=== PATIENT | female | born 1965 | race Caucasian/White ===

== ENCOUNTER 2016-06-14 15:44 | Outpatient (CLI) | payer MEDICAID | END 2016-06-14 15:45 | disposition home or self-care (01) | DX: Z12.31 Encounter for screening mammogram for malignant neoplasm of breast (principal); R92.8 Other abnormal and inconclusive findings on diagnostic imaging of breast ==

== ENCOUNTER 2016-09-01 12:19 | Outpatient (CLI) | payer MEDICAID | END 2016-09-01 12:20 | disposition home or self-care (01) | DX: N60.02 Solitary cyst of left breast (principal) ==

== ENCOUNTER 2017-03-21 15:57 | Outpatient (CLI) | payer MEDICAID ==
--- NOTE | 2017-03-21 16:50 | XRAY Preliminary Report ---
Exam: XR FOOT 3 VIEW RT IMPRESSION: Normal foot radiography. [facility] SITE ID: [id number]
--- NOTE | 2017-03-21 16:53 | XRAY Report ---
EXAM: RIGHT FOOT RADIOGRAPHY EXAM DATE: 03/21/2017 04:40 PM. CLINICAL HISTORY: PAIN. COMPARISON: None. TECHNIQUE: 3 views. FINDINGS: Bones: Normal. No fractures or bone lesions. Joints: Normal. No subluxations. Soft Tissues: Unremarkable. IMPRESSION: Normal foot radiography. [facility] Referring Provider Line: [phone] SITE ID: [id number]
== END 2017-03-21 15:58 | disposition home or self-care (01) ==
LOC: DI 15:57
DX: M79.671 Pain in right foot (principal)

== ENCOUNTER 2017-04-18 15:38 | Emergency (ER) | payer MEDICAID ==
[2017-04-18 15:45] VITALS: BP 135/88
--- NOTE | 2017-04-18 16:01 | ED Physician Documentation ---
PD HPI HEENT - Stated complaint Stated Complaint: DIZZY - Chief complaint Chief Complaint: Heent - History obtained from History obtained from: Patient - History of Present Illness Timing - onset: Other (She has had sinus congestion sore throat for 2 months now associated with vertigo today when turning her head that was exacerbated by cervical spine physical therapy. There is some subjective fever and chills with it but nothing measured. No sick contacts or recent travel.) Review of Systems Constitutional: reports: Fever, Chills, Fatigue Ears: reports: Ear pain Nose: reports: Congestion, Sinus pressure / pain Throat: reports: Sore throat Respiratory: reports: Cough (Occasional, usually dry). 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 : None HEENT: None Psych: Bipolar disorder Musculoskeletal: None Derm: None - Past Surgical History Past Surgical History: No - Present Medications Home Medications: Ambulatory Orders Medication Instructions Recorded Confirmed Venlafaxine [Effexor] 150 mg PO DAILY 08/28/13 04/18/17 lamoTRIgine [LaMICtal] 200 mg PO BID 08/28/13 04/18/17 Amoxicillin 500 mg PO TID #30 capsule 04/18/17 Gabapentin 300 mg PO TID 04/18/17 04/18/17 Meclizine HCl 1 tab PO Q6H PRN #15 tab.chew 04/18/17 - Allergies Allergies/Adverse Reactions: Allergies Allergy/AdvReac Type Severity Reaction Status Date / Time Sulfa (Sulfonamide Allergy Hives Verified 04/18/17 15:45 Antibiotics) - Social History Does the pt smoke?: Yes Smoking Status: Current every day smoker Does the pt drink ETOH?: No Does the pt have substance abuse?: No - Immunizations Immunizations are current?: Yes PD ED PE NORMAL - Vitals Vital signs reviewed: Yes - General General: Alert and oriented X 3, No acute distress, Well developed/nourished - HEENT HEENT: Ears normal, Moist mucous membranes, Pharynx benign, Other (Sinus tenderness, especially frontal.) - Neck Neck: Supple, no meningeal sign, No bony TTP - Cardiac Cardiac: RRR, No murmur - Respiratory Respiratory: No respiratory distress, Clear bilaterally - Abdomen Abdomen: Non tender - Neuro Neuro: Alert and oriented X 3 Eye Opening: Spontaneous Motor: Obeys Commands Verbal: Oriented GCS Score: 15 - Psych Psych: Normal mood, Normal affect Results - Vitals Vitals: Vital Signs - 24 hr 04/18/17 15:41 Temperature 35.5 C L Heart Rate 90 Respiratory 18 Rate Blood Pressure 135/88 H O2 Saturation 100 Oxygen O2 Source Room air PD MEDICAL DECISION MAKING - ED course ED course: She presents with signs and symptoms of sinus infection with associated mild vertigo which seems peripheral, stroke scale negative. Departure - Departure Disposition: Home, Self Care Clinical Impression: Sinusitis Qualifiers: Sinusitis location: frontal Chronicity: acute Recurrence: recurrent Qualified Code(s): J01.11 - Acute recurrent frontal sinusitis Condition: Good Record reviewed to determine appropriate education?: Yes Instructions: ED Sinusitis Abx Tx Prescriptions: Amoxicillin 500 mg PO TID #30 capsule Meclizine HCl 1 tab PO Q6H PRN #15 tab.chew PRN Reason: Vertigo Comments: Call your doctor to arrange a follow-up appointment, make the next available appointment. In the interim, return anytime if worse or if new symptoms develop. Your blood pressure was elevated today on check into the emergency department. This does not mean that you have hypertension, it is a common phenomenon to come to the emergency department and have elevated blood pressure. I recommend that you see your primary care physician within the week to have it rechecked when you are feeling better.
== END 2017-04-18 16:06 | disposition home or self-care (01) ==
LOC: ED 15:38
DX: J01.11 Acute recurrent frontal sinusitis (principal); R03.0 Elevated blood-pressure reading, without diagnosis of hypertension; F17.200 Nicotine dependence, unspecified, uncomplicated
CPT/HCPCS: 99283

== ENCOUNTER 2018-10-07 06:31 | Emergency (ER) | payer MEDICAID ==
[2018-10-07 06:38] VITALS: BP 138/95
[2018-10-07] MEDS ORDERED: PROPARACAINE 0.5% OPHTH DROPS 15 ML RIGHTEYE STA (07:09)
--- NOTE | 2018-10-07 07:12 | ED Physician Documentation ---
PD HPI OPHTHO - Stated complaint Stated Complaint: EYE PX - Chief complaint Chief Complaint: Heent - History obtained from History obtained from: Patient - History of Present Illness Timing - onset: Last night Timing - duration: Hours Timing - details: Abrupt onset, Still present Location: Left Quality / character: Sharp, Other (fb) Associated symptoms: FB sensation Contributing factors: Other (dog scratched eye) Similar symptoms before: Has not had sx before Recently seen: Not recently seen - Additional information Additional information: 52-year-old female was playing with a dog yesterday when the dog scratched her in the left thigh she has had a foreign body sensation since that time she is not able to see anything in the eye but continues to have the foreign body sensation. Review of Systems Constitutional: denies: Fever Eyes: reports: Irritation. 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 : None HEENT: None Psych: Bipolar disorder Musculoskeletal: None Derm: None - Past Surgical History Past Surgical History: No - Present Medications Home Medications: Ambulatory Orders Medication Instructions Recorded Confirmed Venlafaxine [Effexor] 150 mg PO DAILY 08/28/13 04/18/17 lamoTRIgine [LaMICtal] 200 mg PO BID 08/28/13 04/18/17 Amoxicillin 500 mg PO TID #30 capsule 04/18/17 Gabapentin 300 mg PO TID 04/18/17 04/18/17 Meclizine HCl 1 tab PO Q6H PRN #15 tab.chew 04/18/17 Neomycin/Poly/Dex Ophth Drops 1 drops LEFTEYE QID #1 bottle 10/07/18 [Maxitrol Ophth Drops] - Allergies Allergies/Adverse Reactions: Allergies Allergy/AdvReac Type Severity Reaction Status Date / Time midazolam [From Versed] Allergy Unknown Verified 10/07/18 06:38 Sulfa (Sulfonamide Allergy Hives Verified 10/07/18 06:38 Antibiotics) - Social History Does the pt smoke?: Yes Smoking Status: Current every day smoker Does the pt drink ETOH?: No Does the pt have substance abuse?: No - Immunizations Immunizations are current?: Yes - POLST Patient has POLST: No PD ED PE NORMAL - Vitals Vital signs reviewed: Yes (hypertensive ) - General General: Alert and oriented X 3, No acute distress, Well developed/nourished - HEENT HEENT: Atraumatic, PERRL, EOMI, Other (There is no obvious FB under the lid or on the conjunctiva. There is superficial fluorocein uptake superiorly. There is no hyphema, there is no distortion of the pupil or irris. ) - Neck Neck: Supple, no meningeal sign - Respiratory Respiratory: No respiratory distress - Derm Derm: Normal color, Warm and dry, No rash - Extremities Extremities: No deformity, No edema - Neuro Neuro: Alert and oriented X 3, [employer] 2-12 intact, No motor deficit, No sensory deficit, Normal speech Eye Opening: Spontaneous Motor: Obeys Commands Verbal: Oriented GCS Score: 15 - Psych Psych: Normal mood, Normal affect Results - Vitals Vitals: Vital Signs - 24 hr /18/19 06:35 Temperature 36.3 C L Heart Rate 83 Respiratory 16 Rate Blood Pressure 138/95 H O2 Saturation 100 Oxygen O2 Source Room air PD MEDICAL DECISION MAKING - ED course Complexity details: considered differential, d/w patient ED course: 52-year-old female with a superficial abrasion to the left cornea. Departure - Departure Disposition: 01 Home, Self Care Clinical Impression: Corneal abrasion, left Qualifiers: Encounter type: initial encounter Qualified Code(s): S05.02XA - Injury of conjunctiva and corneal abrasion without foreign body, left eye, initial encounter Condition: Stable Instructions: ED Eye Injury Corneal Abrasion Follow-Up: [facility] [Provider Group] Porter Malcolm MD [Provider Admit Priv/Credential] - Prescriptions: Neomycin/Poly/Dex Ophth Drops [Maxitrol Ophth Drops] 1 drops LEFTEYE QID #1 bottle
== END 2018-10-07 07:44 | disposition home or self-care (01) ==
LOC: ED 06:31
DX: S05.02XA Injury of conjunctiva and corneal abrasion without foreign body, left eye, initial encounter (principal); W54.8XXA Other contact with dog, initial encounter; Y93.89 Activity, other specified; F17.200 Nicotine dependence, unspecified, uncomplicated
CPT/HCPCS: 99283; J3490

== ENCOUNTER 2019-01-23 05:02 | Emergency (ER) | payer MEDICAID ==
--- NOTE | 2019-01-23 05:09 | ED Physician Documentation ---
PD HPI NECK PAIN - Stated complaint Stated Complaint: NK/BK/SHOULDER PX - History obtained from History obtained from: Patient - History of Present Illness Timing - onset: Chronic Timing - duration: Years Timing - details: Gradual onset, Waxing and waning Pain level now: 5 Location: Lower, Right, Left Quality: Pain, Similar to prior episodes, Other (burning) Associated symptoms: No: Fever, Weakness, Numbness, Incontinent of urine, Unable to urinate Improves with: Rest Worsened by: Movement Similar symptoms before: Diagnosis (DJD, cervical disc "bulging" (per patient), "bone spur") - Additional information Additional information: c/o chronic mid/low posterior neck pain radiating to bilateral shoulders, aching and burning pain. Steadily worsening, exacerbated with movement. She had some medication injected into the area approximately 1 year ago and she says this worked well for nearly a full year but pain has been gradually returning and next step is to have MRI performed; she is awaiting approval for this so she can schedule it. She says her doctor will then use the MRI results to decide whether to perform another injection or perform surgery. She presents at this time looking for symptomatic relief Review of Systems Constitutional: denies: Fever Skin: denies: Rash Musculoskeletal: reports: Neck pain. 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 HEENT: None Psych: Bipolar disorder Musculoskeletal: None Derm: None - Past Surgical History Past Surgical History: No - Present Medications Home Medications: Ambulatory Orders Medication Instructions Recorded Confirmed Venlafaxine [Effexor] 300 mg PO DAILY 08/28/13 04/18/17 lamoTRIgine [LaMICtal] 200 mg PO BID 08/28/13 01/23/19 Gabapentin 900 mg PO BID 04/18/17 04/18/17 Cyclobenzaprine [Flexeril] 10 mg PO TID PRN #20 tablet 01/23/19 Estradiol 1 mg PO DAILY 01/23/19 01/23/19 Ibuprofen [Motrin] 800 mg PO BID 01/23/19 01/23/19 Lidocaine Patch 5% [Lidoderm Patch] 1 each TOP DAILY PRN #20 patch 01/23/19 - Allergies Allergies/Adverse Reactions: Allergies Allergy/AdvReac Type Severity Reaction Status Date / Time midazolam [From Versed] Allergy Unknown Verified 10/07/18 06:38 Sulfa (Sulfonamide Allergy Hives Verified 10/07/18 06:38 Antibiotics) - Social History Does the pt smoke?: Yes Smoking Status: Current every day smoker Does the pt drink ETOH?: No Does the pt have substance abuse?: No - Immunizations Immunizations are current?: Yes - POLST Patient has POLST: No PD ED PE NORMAL - Vitals Vital signs reviewed: Yes - General General: Alert and oriented X 3, No acute distress, Well developed/nourished - Neck Neck: Supple, no meningeal sign, No bony TTP - Respiratory Respiratory: No respiratory distress, Clear bilaterally - Derm Derm: No rash - Neuro Neuro: No motor deficit (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 ), No sensory deficit (LTS intact BUE) Results - Vitals Vitals: Vital Signs - 24 hr 01/23/19 01/23/19 05:06 06:05 Temperature 36.6 C Heart Rate 84 77 Respiratory 17 16 Rate Blood Pressure 118/86 H 118/63 O2 Saturation 99 96 Oxygen O2 Source Room air PD MEDICAL DECISION MAKING - ED course Complexity details: reviewed old records, considered differential, d/w patient ED course: Emergent testing not indicated at this time (no elements of HPI or exam to suggest infection, spinal cord compression, or other neurovascular emergent process). Patient says she is recovering alcoholic and wants very much to avoid opiates/narcotic medications. We discussed benzodiazepines for muscle relaxant property but we both agree this would also be inappropriate given her h/o alcoholism. She has had flexeril in the past and this was given (take-home) and as rx, as well as lidocaine patches and one-time dose of decadron PO. Departure - Departure Disposition: 01 Home, Self Care Clinical Impression: Cervical radiculopathy Condition: Good Instructions: ED Cervical Radiculopathy Follow-Up: Sarwat Aldrich MD [Primary Care Provider] - Prescriptions: Cyclobenzaprine [Flexeril] 10 mg PO TID PRN #20 tablet PRN Reason: Spasms Lidocaine Patch 5% [Lidoderm Patch] 1 each TOP DAILY PRN #20 patch PRN Reason: Pain Discharge Date/Time: 01/23/19 06:11
[2019-01-23] MEDS ORDERED: LIDOCAINE PATCH 5% TOP STA (05:55)
[2019-01-23] MEDS ORDERED: CHERRY SYRUP 10 ML UDC PO ONE (05:56)
[2019-01-23] MEDS ORDERED: CYCLOBENZAPRINE 10 MG Prepack 2 PO PRN (05:56)
[2019-01-23] MEDS ORDERED: DEXAMETHASONE 10 MG/ML VIAL PO STA (05:56)
[2019-01-23 06:06] VITALS: BP 118/63
== END 2019-01-23 06:11 | disposition home or self-care (01) ==
LOC: ED 05:02
DX: M54.12 Radiculopathy, cervical region (principal); F17.200 Nicotine dependence, unspecified, uncomplicated; F10.21 Alcohol dependence, in remission
CPT/HCPCS: 99282; 99284; A9270

== ENCOUNTER 2019-01-31 16:31 | Outpatient (CLI) | payer MEDICAID ==
--- NOTE | 2019-02-05 16:03 | Mammography Report ---
Reason: SCREENING FOR BREAST CANCER Procedure Date: 01/31/2019 Accession Number: [id number] / [id number] Procedure: [facility] - Screening Mammo w/Mary Kate CPT Code: FULL RESULT: EXAM: Screening Mammo w/Mary Kate DATE: 01/31/2019 4:56 PM CLINICAL HISTORY: Routine screening TECHNIQUE: (B) - Bilateral CC and MLO views were obtained. COMPARISON: 09/01/2016 and 06/14/2016 PARENCHYMAL PATTERN: (D) - The breasts demonstrate heterogeneously dense fibroglandular parenchyma bilaterally. FINDINGS: On the left cyst at the 11:30 position 3 cm from the nipple appears slightly smaller and less evident than on the preceding examination. No suspicious microcalcifications, architectural distortion, or skin thickening on the left. On the right there is a 1 cm nodular density in the 10:00 position 2 cm from the nipple best seen on MLO mary kate 32 and CC mary kate 27. This may have been present on the prior mammogram but obscured by the dense breast tissue. A second nodular density is seen at approximately the 8:00 position 1.5 cm from the nipple MLO mary kate 29, CC mary kate 25. Also possibly obscured on the prior study. There are no suspicious calcifications or areas of distortion. IMPRESSION: 1. Needs additional evaluation right breast by ultrasound. 2. Benign finding left breast. RECOMMENDATION: (ADDUS) - Targeted ultrasound recommended. Right breast BI-RADS CATEGORY: (0) - Incomplete Examination - need additional evaluation. STANDARD QUALIFYING STATEMENTS: 1. This examination was not reviewed with the aid of Computer-Aided Detection (CAD). 2. A negative or benign imaging report should not preclude biopsy if clinically suspicious findings are present. 3. Dense breasts may obscure an underlying neoplasm. 4. This examination was reviewed with the aid of 3D breast imaging (tomosynthesis).
== END 2019-01-31 16:32 | disposition home or self-care (01) ==
LOC: DI 16:31
PROVIDERS: ATTEND Internal Medicine
DX: Z12.31 Encounter for screening mammogram for malignant neoplasm of breast (principal); R92.8 Other abnormal and inconclusive findings on diagnostic imaging of breast
CPT/HCPCS: 77063; 77067

== ENCOUNTER 2019-05-15 12:34 | Outpatient (CLI) | payer MEDICAID | END 2019-05-15 23:59 | disposition home or self-care (01) | LOC: LAB.R 12:34 | PROVIDERS: ATTEND Registered Nurse | DX: J04.0 Acute laryngitis (principal); R05 Cough; J01.90 Acute sinusitis, unspecified; J20.9 Acute bronchitis, unspecified | CPT/HCPCS: 87070; 87077 ==

== ENCOUNTER 2019-06-04 11:49 | Outpatient (CLI) | payer MEDICAID ==
[2019-06-04 12:30] LABS: BASOPHILS % (AUTO) 0.6 %; EOSINOPHILS # (AUTO) 0.1 10^3/uL (0.0-0.7); EOSINOPHILS % (AUTO) 1.6 %; HGB - HEMOGLOBIN 12.4 g/dL (12.0-16.0); LYMPHOCYTES # (AUTO) 1.4 10^3/uL (1.5-3.5); LYMPHOCYTES % (AUTO) 20.5 %; MEAN CORPUSCULAR HGB CONC 32.5 g/dL (32.0-36.0); MEAN CORPUSCULAR VOLUME 95.3 fL (81.0-99.0); MEAN PLATELET VOLUME 9.8 fL (7.9-10.8); MONOCYTES # (AUTO) 0.7 10^3/uL (0.0-1.0); MONOCYTES % (AUTO) 9.4 %; NEUTROPHILS # (AUTO) 4.7 10^3/uL (1.5-6.6); NEUTROPHILS % (AUTO) 67.2 %; PLT - PLATELET COUNT 345 10^3/uL (130-450); RED CELL DISTRIBUTION WIDTH 13.3 % (12.0-15.0)
[2019-06-04 17:18] LABS: ALBUMIN 4.3 g/dL (3.2-5.5); ALBUMIN/GLOBULIN RATIO 1.4 (1.0-2.2); ALKALINE PHOSPHATASE 49 IU/L (42-121); ALT ALANINE AMINOTRANSFERASE 22 IU/L (10-60); AST ASPARTATE AMINOTRANSFERASE 24 IU/L (10-42); BILIRUBIN,TOTAL 0.7 mg/dL (0.2-1.0); BUN - BLOOD UREA NITROGEN 13 mg/dL (6-20); CALCIUM 9.6 mg/dL (8.5-10.3); CARBON DIOXIDE - CO2 25 mmol/L (21-32); CHLORIDE 102 mmol/L (101-111); CHOL/HDL RATIO 3.2 (<4.4); CHOLESTEROL 246 mg/dL; CREATININE 0.8 mg/dL (0.4-1.0); GFR - MDRD 74 (>89); GLUCOSE 100 mg/dL (70-100); HDL CHOLESTEROL 76 mg/dL; LDL CHOLESTEROL,CALCULATED 140 mg/dL; LDL/HDL RATIO 1.8 (<4.4); SODIUM 140 mmol/L (135-145); TOTAL PROTEIN 7.4 g/dL (6.7-8.2); VLDL CHOLESTEROL 30 mg/dL
== END 2019-06-04 11:50 | disposition home or self-care (01) ==
LOC: LAB 11:49
PROVIDERS: ATTEND Nurse Practitioner
DX: Z00.00 Encounter for general adult medical examination without abnormal findings (principal); Z79.899 Other long term (current) drug therapy; Z13.29 Encounter for screening for other suspected endocrine disorder; Z13.220 Encounter for screening for lipoid disorders
CPT/HCPCS: 36415; 80053; 80061; 83721; 84443; 85025

== ENCOUNTER 2019-06-04 12:10 | Outpatient (CLI) | payer MEDICAID ==
--- NOTE | 2019-06-05 01:50 | XRAY Report ---
Reason: COUGH, LARYNGITIS Procedure Date: 06/04/2019 Accession Number: [id number] / [id number] Procedure: XR - Chest 2 View X-Ray CPT Code: 63555 Final Report FULL RESULT: EXAM: CHEST RADIOGRAPHY EXAM DATE: 06/04/2019 12:21 PM. CLINICAL HISTORY: COUGH, LARYNGITIS. COMPARISON: None. TECHNIQUE: 2 views. FINDINGS: Lungs/Pleura: No focal opacities evident. No pleural effusion. No pneumothorax. Normal volumes. Mediastinum: Heart and mediastinal contours are unremarkable. Other: None. IMPRESSION: Negative 2-view chest radiography. [facility]
== END 2019-06-04 12:11 | disposition home or self-care (01) ==
LOC: DI 12:10
PROVIDERS: ATTEND Registered Nurse
DX: R05 Cough (principal); J04.0 Acute laryngitis; Z00.00 Encounter for general adult medical examination without abnormal findings; Z79.899 Other long term (current) drug therapy; Z13.29 Encounter for screening for other suspected endocrine disorder; Z13.220 Encounter for screening for lipoid disorders
CPT/HCPCS: 36415; 71046; 80053; 80061; 84443; 85025

== ENCOUNTER 2019-07-10 12:44 | Outpatient (CLI) | payer MEDICAID ==
--- NOTE | 2019-07-10 16:36 | Ultrasound Report ---
Reason: ABN MAMMO - 3 MO F/U Procedure Date: 07/10/2019 Accession Number: [id number] / [id number] Procedure: US - Breast Unilateral Limited CPT Code: Final Report FULL RESULT: EXAM: Breast Unilateral Limited DATE: 07/10/2019 1:32 PM CLINICAL HISTORY: ABN MAMMO - 3 MO F/U COMPARISON: 01/31/2019 mammogram and 02/09/2019 ultrasound. TECHNIQUE: Targeted ultrasound was performed of the right breast in the area of clinical concern at 8 o'clock and 2 cm distance from the nipple. Color Doppler was employed as appropriate. FINDINGS: Previously sonographically demonstrated group with 2 nodules at the 8:00 position in the retroareolar region demonstrates no interval sonographic change. The nodules remain relatively well demarcated hypoechoic with complex internal echoes and questionably increased through transmission. Findings remain probably benign with maximal dimensions of 0.6 x 0.4 x 0.6 cm for the more superficial nodule and 0.7 x 0.6 x 0.8 cm for the deeper of the 2 nodules at the 8:00 position. IMPRESSION: Probable benign findings RECOMMENDATION: Recommend diagnostic right breast ultrasound in 6 months. To be performed at the time of annual screening mammography. BIRADS CATEGORY 3 [facility]
== END 2019-07-10 12:45 | disposition home or self-care (01) ==
LOC: DI 12:44
PROVIDERS: ATTEND Internal Medicine
DX: N63.41 Unspecified lump in right breast, subareolar (principal)
CPT/HCPCS: 76642

== ENCOUNTER 2019-09-10 15:25 | Outpatient (CLI) | payer MEDICAID | END 2019-09-10 23:59 | disposition home or self-care (01) | LOC: LAB.R 15:25 | PROVIDERS: ATTEND Nurse Practitioner | DX: N39.41 Urge incontinence (principal); R30.0 Dysuria | CPT/HCPCS: 87086 ==

== ENCOUNTER 2019-10-02 11:49 | Outpatient (CLI) | payer MEDICAID ==
--- NOTE | 2019-10-02 12:39 | CT Report ---
Reason: SINUSITUS, HEADACHE Procedure Date: 10/02/2019 Accession Number: [id number] / [id number] Procedure: CT - Sinuses CPT Code: Final Report FULL RESULT: EXAM: CT SINUS EXAM DATE: 10/02/2019 12:19 PM. HISTORY: SINUSITIS, HEADACHE. COMPARISONS: None. TECHNIQUE: Routine multi-axial CT imaging performed through the sinuses. Iodinated IV contrast: None. Reconstructions: Multiplanar reformats. In accordance with CT protocol optimization, one or more of the following dose reduction techniques were utilized for this exam: automated exposure control, adjustment of mA and/or KV based on patient size, or use of iterative reconstructive technique. FINDINGS: RIGHT Frontal: Normal. Ethmoid: Normal. Maxillary: Normal. Sphenoid: Normal. Drainage Pathways: The frontal recess, ostiomeatal complex and sphenoethmoidal recess are patent and normal. LEFT Frontal: Normal. Ethmoid: Normal. Maxillary: Normal. Sphenoid: Normal. Drainage Pathways: The frontal recess, ostiomeatal complex and sphenoethmoidal recess are patent and normal. Nasal Cavity: Mild nasal septal deviation leftward. Osseous Structures: Unremarkable. Orbits: Unremarkable. Other: None. IMPRESSION: Normal Sinus CT. No sinusitis. [facility]
== END 2019-10-02 11:50 | disposition home or self-care (01) ==
LOC: DI 11:49
PROVIDERS: ATTEND Otolaryngology
DX: J32.8 Other chronic sinusitis (principal); J34.89 Other specified disorders of nose and nasal sinuses; R51 Headache
CPT/HCPCS: 70486

== ENCOUNTER 2019-12-10 14:27 | Outpatient (CLI) | payer MEDICAID ==
[2019-12-10 17:59] LABS: BASOPHILS % (AUTO) 0.5 %; EOSINOPHILS # (AUTO) 0.1 10^3/uL (0.0-0.7); EOSINOPHILS % (AUTO) 1.1 %; HGB - HEMOGLOBIN 12.9 g/dL (12.0-16.0); LYMPHOCYTES # (AUTO) 2.8 10^3/uL (1.5-3.5); LYMPHOCYTES % (AUTO) 36.6 %; MEAN CORPUSCULAR HEMOGLOBIN 30.2 pg (27.0-31.0); MEAN CORPUSCULAR VOLUME 94.4 fL (81.0-99.0); MEAN PLATELET VOLUME 9.8 fL (7.9-10.8); MONOCYTES # (AUTO) 0.6 10^3/uL (0.0-1.0); MONOCYTES % (AUTO) 8.1 %; NEUTROPHILS % (AUTO) 53.2 %; PLT - PLATELET COUNT 387 10^3/uL (130-450); RED BLOOD COUNT 4.27 10^6/uL (4.20-5.40); RED CELL DISTRIBUTION WIDTH 12.8 % (12.0-15.0); WHITE BLOOD COUNT 7.5 x10^3/uL (4.8-10.8)
[2019-12-10 18:36] LABS: ALBUMIN/GLOBULIN RATIO 1.5 (1.0-2.2); BILIRUBIN,TOTAL 0.6 mg/dL (0.2-1.0); CALCIUM 10.5 mg/dL (8.5-10.3); CREATININE 0.8 mg/dL (0.4-1.0); TOTAL PROTEIN 8.3 g/dL (6.7-8.2)
== END 2019-12-10 23:59 | disposition home or self-care (01) ==
LOC: LAB.WCP 14:27
PROVIDERS: ATTEND Nurse Practitioner
DX: Z01.818 Encounter for other preprocedural examination (principal); Z79.899 Other long term (current) drug therapy; M50.90 Cervical disc disorder, unspecified, unspecified cervical region
CPT/HCPCS: 36415; 80053; 85025

== ENCOUNTER 2020-04-29 11:55 | Outpatient (CLI) | payer MEDICAID ==
[2020-04-29] MEDS ORDERED: IOVERSOL 320 50 ML VIAL ONE (12:07)
[2020-04-29] MEDS ORDERED: IOVERSOL 320 100 ML VIAL IVP ONE ×2 (12:07→13:42)
[2020-04-29] MEDS ORDERED: IOVERSOL 320 50 ML VIAL PO ONE (13:42)
--- NOTE | 2020-04-29 15:10 | CT Report ---
PROCEDURE: Abdomen/Pelvis W INDICATIONS: ABD PAIN, GASTRITIS, ABD BLOATING CONTRAST: IV CONTRAST: Optiray 320 ml: 100 PO CONTRAST: Optiray 320 ml50 TECHNIQUE: After the administration of oral and intravenous contrast, 5 mm thick sections acquired from the diap hragms to the symphysis. 5 mm thick coronal and sagittal reformats were acquired. For radiation dos e reduction, the following was used: automated exposure control, adjustment of mA and/or kV accordin g to patient size. COMPARISON: None. FINDINGS: Image quality: Excellent. ABDOMEN: Lung bases: Lung bases are clear. Heart size is normal. Solid organs: Liver and spleen are normal in size and enhancement. Gallbladder is unremarkable. Bi liary system is non dilated. Pancreas enhances normally. No adrenal nodules. Kidneys demonstrate n ormal size and enhancement, without hydronephrosis. Peritoneum and bowel: Bowel loops demonstrate normal wall thickness and caliber. No free fluid or a ir. Nodes and vessels: No retroperitoneal or mesenteric adenopathy by size criteria. Aorta and inferior vena cava are normal in size. Mild aortic atherosclerotic calcifications. Incidental note made of th e presence of a retroaortic left renal vein. Miscellaneous: No ventral hernias. PELVIS: Genitourinary: Bladder wall thickness is normal. Miscellaneous: No inguinal hernias or adenopathy. Bones: No suspicious bony lesions. No vertebral body compression fractures. IMPRESSION: Unremarkable CT of the abdomen and pelvis. Reviewed by: Chris Keenan MD on 04/29/2020 3:09 PM PST Approved by: Chris Keenan MD on 04/29/2020 3:09 PM PST Station ID: [id number]
== END 2020-04-29 11:56 | disposition home or self-care (01) ==
LOC: DI 11:55
PROVIDERS: ATTEND Nurse Practitioner
DX: K29.00 Acute gastritis without bleeding (principal); R14.0 Abdominal distension (gaseous); F10.21 Alcohol dependence, in remission
CPT/HCPCS: 74177; Q9967

== ENCOUNTER 2020-07-11 12:38 | Outpatient (CLI) | payer MEDICAID | END 2020-07-11 12:39 | disposition home or self-care (01) | LOC: COV 12:38 | PROVIDERS: ATTEND Surgery | DX: Z01.812 Encounter for preprocedural laboratory examination (principal); Z12.11 Encounter for screening for malignant neoplasm of colon; K21.9 Gastro-esophageal reflux disease without esophagitis; Z20.822 Contact with and (suspected) exposure to COVID-19 ==

== ENCOUNTER 2020-07-15 08:56 | Day surgery (SDC) | payer MEDICAID ==
[2020-07-15] MEDS ORDERED: LIDO GARGLE 30 ML BOTTLE ONE (08:59)
[2020-07-15] MEDS ORDERED: LACTATED RINGERS 1,000 ML IV ONE ×2 (09:29→11:06)
--- NOTE | 2020-07-15 09:48 | ANESTHESIA ---
Pre-Anesthesia VS, & Labs - Diagnosis screening, reflux - Procedure EGD, colonoscopy Vital Signs: Temp Pulse Resp BP Pulse Ox 36.9 C 93 20 145/92 H 95 07/15/20 09:31 07/15/20 09:31 07/15/20 09:31 07/15/20 09:31 07/15/20 09:31 Height: 5 ft 3 in Weight (kg): 74 kg Body Mass Index: 28.9 BMI Classification: Overweight - NPO >8 hours - Is Patient ?: No Home Medications and Allergies Home Medications: Ambulatory Orders Pantoprazole [Protonix] 40 mg PO BID 07/14/20 Venlafaxine [Effexor] 300 mg PO DAILY 08/28/13 lamoTRIgine [LaMICtal] 200 mg PO BID 08/28/13 Gabapentin 300 mg PO BID 04/18/17 Ibuprofen [Motrin] 800 mg PO BID PRN 01/23/19 Pantoprazole [Protonix] 40 mg PO BID 07/14/20 Allergies/Adverse Reactions: Allergies Allergy/AdvReac Type Severity Reaction Status Date / Time clarithromycin [From Biaxin] Allergy Unknown Verified 07/15/20 09:37 midazolam [From Versed] Allergy Unknown Verified 10/07/18 06:38 Sulfa (Sulfonamide Allergy Hives Verified 10/07/18 06:38 Antibiotics) Iodine and Iodide Containing AdvReac Intermediate Nausea Verified 07/14/20 13:22 Produc fluconazole [From Diflucan] AdvReac Unknown Verified 07/15/20 09:40 Anes History & Medical History - Anesthetic History Anesthesia Complications: reports: No previous complications - Medical History Cardiovascular: reports: None Pulmonary: reports: None Gastrointestinal: reports: None Urinary: reports: None Musculoskeletal: reports: None, Fibromyalgia Endocrine/Autoimmune: reports: Other Blood Disorders: reports: None Skin: reports: None Smoking Status: Current every day smoker History of Cancer?: No - Surgical History Orthopedic: reports: Carpal Tunnel surgery, Spine surgery, Other Exam General: Alert Dental: WNL Mouth Opening: Greater than 4 Fingerbreadths Neck Mobility: Normal Mallampati classification: II Respiratory: Lungs clear Cardiovascular: Regular rate, Normal S1, Normal S2 Plan Anesthesia Type: MAC Consent for Procedure(s) Verified and Reviewed: Yes Code Status: Attempt Resuscitation ASA classification: 2-Mild systemic disease Is this case an emergency?: No
[2020-07-15] MEDS ORDERED: ONDANSETRON 4 MG/2 ML VIAL ONE (10:04)
[2020-07-15] MEDS ORDERED: fentaNYL 100 MCG/2 ML VIAL ONE (10:04)
[2020-07-15] MEDS ORDERED: ACETAMINOPHEN 1,000 MG/100 ML 100 ML IV ONE (10:07)
[2020-07-15] MEDS ORDERED: KETOROLAC 30 MG/ML VIAL ONE (10:07)
[2020-07-15 11:15] VITALS: BP 132/89
--- NOTE | 2020-07-15 13:51 | ANESTHESIA POST OP EVALUATION ---
Anesthesia Post Eval - Post Anesthesia Eval Vitals: Last Vital Signs Temp 36.6 C 07/15/20 10:58 Pulse 82 07/15/20 11:15 Resp 19 07/15/20 11:15 BP 132/89 H 07/15/20 11:15 Pulse Ox 98 07/15/20 11:15 CV Function Including HR & BP: positive: Stable Pain Control: positive: Satisfactory Nausea & Vomiting: positive: Negative Mental Status: positive: Baseline Respiratory Status: Airway Patent Hydration Status: Satisfactory Anesthesia Complications: positive: None
== END 2020-07-15 08:57 | disposition home or self-care (01) ==
LOC: SDS 08:56
PROVIDERS: ATTEND Surgery
PROC: 0DB78ZX Excision of Stomach, Pylorus, Via Natural or Artificial Opening Endoscopic, Diagnostic (ICD-10-PCS; 2020-07-15)
PROC: 0DB28ZX Excision of Middle Esophagus, Via Natural or Artificial Opening Endoscopic, Diagnostic (ICD-10-PCS; 2020-07-15)
PROC: 0DB48ZX Excision of Esophagogastric Junction, Via Natural or Artificial Opening Endoscopic, Diagnostic (ICD-10-PCS; 2020-07-15)
PROC: 0DBH8ZZ Excision of Cecum, Via Natural or Artificial Opening Endoscopic (ICD-10-PCS; principal; 2020-07-15 10:15)
PROC: 0DB98ZX Excision of Duodenum, Via Natural or Artificial Opening Endoscopic, Diagnostic (ICD-10-PCS; 2020-07-15 10:15)
DX: Z12.11 Encounter for screening for malignant neoplasm of colon (principal); K21.9 Gastro-esophageal reflux disease without esophagitis; D12.0 Benign neoplasm of cecum; K64.8 Other hemorrhoids; K29.70 Gastritis, unspecified, without bleeding; E66.3 Overweight; Z68.28 Body mass index [BMI] 28.0-28.9, adult; F17.200 Nicotine dependence, unspecified, uncomplicated
CPT/HCPCS: 43239; 45385; J0131; J7120

== ENCOUNTER 2020-09-01 08:00 | Outpatient (CLI) | payer MEDICAID ==
[2020-09-01 21:23] LABS: BACTERIAL VAGINOSIS DNA POSITIVE (NEGATIVE); CANDIDA GLABRATA DNA NEGATIVE (NEGATIVE); CANDIDA GROUP DNA NEGATIVE (NEGATIVE); CANDIDA KRUSEI DNA NEGATIVE (NEGATIVE); TRICHOMONAS VAGINALIS DNA POSITIVE (NEGATIVE)
[2020-09-01 22:05] LABS: CHLAMYDIA TRACHOMATIS DNA NEGATIVE (NEGATIVE); NEISSERIA GONORRHOEAE DNA NEGATIVE (NEGATIVE)
[2020-09-01 22:42] LABS: TRICHOMONAS VAGINALIS DNA POSITIVE (NEGATIVE)
[2020-09-02 13:16] LABS: HEPATITIS C ANTIBODY NON-REACTIVE (NON-REACTIVE)
[2020-09-03 14:46] LABS: HSV 2 IGG TYPE SPECIFIC AB <0.90 index
== END 2020-09-01 23:59 | disposition home or self-care (01) ==
LOC: LAB.S 08:00
PROVIDERS: ATTEND Physician Assistant Medical
DX: J01.90 Acute sinusitis, unspecified (principal); R05 Cough; R06.7 Sneezing; M79.10 Myalgia, unspecified site; R10.2 Pelvic and perineal pain; R30.0 Dysuria; Z72.89 Other problems related to lifestyle; Z20.822 Contact with and (suspected) exposure to COVID-19
CPT/HCPCS: 36415; 81599; 86592; 86695; 86696; 86803; 87086; 87491; 87529; 87591; 87661; 87801

== ENCOUNTER 2020-10-29 04:37 | Emergency (ER) | payer MEDICAID ==
--- NOTE | 2020-10-29 04:55 | ED Physician Documentation ---
History of Present Illness - Stated complaint Stated Complaint: L HIP/LEG PX AND SPASIMS - Chief complaint Chief Complaint: Ext Problem - History obtained from History obtained from: Patient - History of Present Illness Timing: How many weeks ago Pain level max: 8 Pain level now: 6 Improved by: no ameliorating factors Worsened by: some component of exaceration with movement - Additonal information Additional information: c/o 2 weeks of gradual onset, steadily progressive left low back pain radiating down lateral aspect of left leg to knee. Onset seemed to correlate with yard work (weeding) although there was no injury nor recollection of inciting event. She was evaluated approximately 1 week ago and diagnosed with sacroiliitis for which she was prescribed flexeril and 800 mg ibuprofen. These have not given adequate relief. The pain is associated with episodic muscle spasms of LLE. Review of Systems Constitutional: denies: Fever, Chills, Sweats GI: denies: Abdominal Pain : denies: Dysuria, Frequency, Unable to Void, Incontinent, Hematuria Skin: denies: Rash Musculoskeletal: reports: Back pain, Extremity pain. denies: Extremity swelling, Joint swelling Neurologic: reports: Numbness (paresthesias of lateral aspect of left thigh). 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 : None HEENT: None Psych: Bipolar disorder Musculoskeletal: None Derm: None - Past Surgical History Past Surgical History: No Ortho: Carpal Tunnel surgery, Other - Present Medications Home Medications: Ambulatory Orders Medication Instructions Recorded Confirmed Venlafaxine [Effexor] 150 mg PO BID 08/28/13 10/29/20 lamoTRIgine [LaMICtal] 150 mg PO BID 08/28/13 10/29/20 Gabapentin 300 mg PO TID 04/18/17 10/29/20 Cyclobenzaprine [Flexeril] 10 mg PO TID PRN #20 tablet 01/23/19 10/29/20 Ibuprofen [Motrin] 800 mg PO BID PRN 01/23/19 10/29/20 Lidocaine Patch 5% [Lidoderm Patch] 1 each TOP DAILY PRN #20 patch 01/23/19 10/29/20 Pantoprazole [Protonix] 1 tab PO BID 07/14/20 10/29/20 Acetaminophen [Acetaminophen Extra 500 mg PO PRN PRN 10/29/20 10/29/20 Strength] Fluticasone [Flonase] 2 sprays YI DAILY 10/29/20 10/29/20 Oxycodone HCl/Acetaminophen 1 - 2 each PO Q6H PRN #14 tablet 10/29/20 [Percocet 5-325 mg Tablet] diazePAM [Valium] 5 mg PO TID PRN #15 tablet 10/29/20 - Allergies Allergies/Adverse Reactions: Allergies Allergy/AdvReac Type Severity Reaction Status Date / Time midazolam [From Versed] Allergy Intermediate Anxiety Verified 10/29/20 04:49 Sulfa (Sulfonamide Allergy Mild Hives Verified 10/29/20 04:49 Antibiotics) clarithromycin [From Biaxin] Allergy Unknown Verified 10/29/20 04:49 Iodine and Iodide Containing AdvReac Intermediate Nausea Verified 10/29/20 04:49 Produc fluconazole [From Diflucan] AdvReac Unknown Verified 10/29/20 04:49 - Social History Does the pt smoke?: Yes Smoking Status: Current every day smoker Does the pt drink ETOH?: No Does the pt have substance abuse?: No - Immunizations Immunizations are current?: Yes Immunizations: TDAP current <10years, Other immun not current - POLST Patient has POLST: No PD ED PE NORMAL - Vitals Vital signs reviewed: Yes - General General: Alert and oriented X 3, Well developed/nourished, Other (episodic painful distress during H+P) - Abdomen Abdomen: Soft, Non tender - Back Back: No CVA TTP, No spinal TTP - Derm Derm: Normal color, Warm and dry, No rash - Extremities Extremities: No tenderness to palpate, Normal ROM s pain, No edema - Neuro Neuro: No motor deficit, No sensory deficit PD ED PE EXPANDED - Back Back: Other (TTP left SI joint) Results - Vitals Vitals: Vital Signs - 24 hr 10/29/20 10/29/20 04:42 06:19 Temperature 35.9 C L 36.9 C Heart Rate 108 H 99 Respiratory 20 18 Rate Blood Pressure 179/104 H 159/119 H O2 Saturation 98 99 Oxygen O2 Source Room air PD MEDICAL DECISION MAKING - ED course Complexity details: re-evaluated patient, considered differential, d/w patient ED course: atraumatic left low back pain radiating down LLE to the knee. emergent testing not indicated at this time; no "red flags" such as fever, weakness, injury, bowel/bladder incontinence. She describes mild paresthesias of left thigh along lateral aspect. We discussed options for pain control and, as with previous visits, she reports a h/o substance abuse/addiction. We then discussed the risks particular to this scenario, specifically risk of addiction to narcotics and/or benzodiazepines in setting of previous substance abuse. She expresses understanding and a shared decision is reached to proceed with narcotic pain control (oxycodone) and benzodiazepine for muscle relaxant properties. She appears to have episodes of significant painful distress that suggest alternative medications that are non-narcotic are unlikely to be effective. Given 5mg PO valium and 10mg oxycodone in ED, as well as 10mg PO decadron. On reevaluation she is comfortable, in NAD, and reports significant improvement in symptoms. She is comfortable with d/c home and is provided rx for percocet and valium. Departure - Departure Disposition: 01 Home, Self Care Clinical Impression: Lumbar radiculopathy Condition: Good Instructions: ED Sciatica Follow-Up: ARRON ARDON PA-C [Primary Care Provider] - Prescriptions: Oxycodone HCl/Acetaminophen [Percocet 5-325 mg Tablet] 1 - 2 each PO Q6H PRN #14 tablet PRN Reason: pain diazePAM [Valium] 5 mg PO TID PRN #15 tablet PRN Reason: Spasms Discharge Date/Time: 10/29/20 06:20
[2020-10-29] MEDS ORDERED: oxyCODONE 5 MG TABLET PO STA (05:15)
[2020-10-29] MEDS ORDERED: DEXAMETHASONE 10 MG/ML VIAL PO STA (05:16)
[2020-10-29] MEDS ORDERED: CHERRY SYRUP 10 ML UDC PO ONE (05:16)
[2020-10-29] MEDS ORDERED: diazePAM 5 MG TABLET PO STA (05:16)
[2020-10-29 06:20] VITALS: BP 159/119
== END 2020-10-29 06:20 | disposition home or self-care (01) ==
LOC: ED 04:37
DX: M54.16 Radiculopathy, lumbar region (principal); F17.200 Nicotine dependence, unspecified, uncomplicated
CPT/HCPCS: 99282; 99284; A9270

== ENCOUNTER 2021-01-10 09:53 | Emergency (ER) | payer MEDICAID ==
[2021-01-10 10:03] VITALS: BP 136/79
--- NOTE | 2021-01-10 10:23 | ED Physician Documentation ---
PD HPI UPPER EXT INJURY - Stated complaint Stated Complaint: LT HAND INJ - Chief complaint Chief Complaint: Ext Problem - History obtained from History obtained from: Patient - History of Present Illness Location: Right, Hand Type of injury: Fall Where injury occurred: Home Timing - onset: Last night Timing - duration: Days (1) Timing - details: Abrupt onset, Still present Improved by: Rest, Immobilization Worsened by: Moving, Palpating Associated symptoms: Swelling, Discolored. No: Weakness, Numbness Contributing factors: No: Anticoagulated Similar symptoms before: Has not had sx before Recently seen: Not recently seen - Additonal information Additional information: Previously well 55-year-old female with a fall in her home last night injuring her left hand. She has pain swelling and ecchymosis to the lateral aspect of the hand she is able to flex and extend her wrist without difficulty. 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 : None HEENT: None Psych: Bipolar disorder Musculoskeletal: None Derm: None - Past Surgical History Past Surgical History: No Ortho: Carpal Tunnel surgery, Other - Present Medications Home Medications: Ambulatory Orders Medication Instructions Recorded Confirmed Venlafaxine [Effexor] 150 mg PO BID 08/28/13 10/29/20 lamoTRIgine [LaMICtal] 150 mg PO BID 08/28/13 10/29/20 Gabapentin 300 mg PO TID 04/18/17 10/29/20 Cyclobenzaprine [Flexeril] 10 mg PO TID PRN #20 tablet 01/23/19 10/29/20 Ibuprofen [Motrin] 800 mg PO BID PRN 01/23/19 10/29/20 Lidocaine Patch 5% [Lidoderm Patch] 1 each TOP DAILY PRN #20 patch 01/23/19 10/29/20 Pantoprazole [Protonix] 1 tab PO BID 07/14/20 10/29/20 Acetaminophen [Acetaminophen Extra 500 mg PO PRN PRN 10/29/20 10/29/20 Strength] Fluticasone [Flonase] 2 sprays YI DAILY 10/29/20 10/29/20 Oxycodone HCl/Acetaminophen 1 - 2 each PO Q6H PRN #14 tablet 10/29/20 [Percocet 5-325 mg Tablet] diazePAM [Valium] 5 mg PO TID PRN #15 tablet 10/29/20 - Allergies Allergies/Adverse Reactions: Allergies Allergy/AdvReac Type Severity Reaction Status Date / Time midazolam [From Versed] Allergy Intermediate Anxiety Verified 01/10/21 10:03 Sulfa (Sulfonamide Allergy Mild Hives Verified 01/10/21 10:03 Antibiotics) clarithromycin [From Biaxin] Allergy Unknown Verified 01/10/21 10:03 Iodine and Iodide Containing AdvReac Intermediate Nausea Verified 01/10/21 10:03 Produc fluconazole [From Diflucan] AdvReac Unknown Verified 01/10/21 10:03 - Social History Does the pt smoke?: Yes Smoking Status: Current every day smoker Does the pt drink ETOH?: No Does the pt have substance abuse?: No - Immunizations Immunizations are current?: Yes Immunizations: TDAP current <10years, Other immun not current - POLST Patient has POLST: No PD ED PE NORMAL - Vitals Vital signs reviewed: Yes (hyertensive ) - General General: Alert and oriented X 3, No acute distress, Well developed/nourished - HEENT HEENT: Atraumatic, PERRL, EOMI - Respiratory Respiratory: No respiratory distress - Derm Derm: Normal color, Warm and dry, No rash - Extremities Extremities: No deformity, No edema, Other (tenderness, swelling and ecchymosis to the left hand over the lateral aspect. 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, No motor deficit, No sensory deficit, Normal speech Eye Opening: Spontaneous Motor: Obeys Commands Verbal: Oriented GCS Score: 15 - Psych Psych: Normal mood, Normal affect Results - Vitals Vitals: Vital Signs - 24 hr 01/10/21 09:58 Temperature 36.6 C Heart Rate 82 Respiratory 15 Rate Blood Pressure 136/79 H O2 Saturation 98 Oxygen O2 Source Room air - Rads (name of study) left hand Radiology: Prelim report reviewed (Impression: Soft tissue swelling is seen.), EMP read indepedently, See rad report Procedures - Splint (location) left hand Splint applied by: Tech Type of splint: Fiberglass, Ulnar gutter Other: Patient tolerated well, No complications, Neurovascular intact, Good alignment PD MEDICAL DECISION MAKING - ED course Complexity details: reviewed results, re-evaluated patient, considered differential, d/w patient ED course: 55-year-old female with a injury to her right hand has pain and swelling along the ulnar aspect of the hand and she is placed in an ulnar gutter splint after x-rays demonstrate no evidence of fracture. Departure - Departure Disposition: 01 Home, Self Care Clinical Impression: Contusion of left hand Qualifiers: Encounter type: initial encounter Qualified Code(s): S60.222A - Contusion of left hand, initial encounter Condition: Stable Instructions: ED Sprain Hand Follow-Up: Keith Francis MD [Primary Care Provider] -
--- NOTE | 2021-01-10 11:02 | XRAY Report ---
PROCEDURE: Hand 3 View LT INDICATIONS: Trauma TECHNIQUE: 3 views of the hand(s) acquired. COMPARISON: None FINDINGS: Bones: No fractures or dislocations. No suspicious bony lesions. Focal degenerative change is seen involving the first carpometacarpal joint, with milder degenerative changes seen elsewhere. Note is made of negative ulnar variance. Soft tissues: Generalized soft tissue swelling is seen. IMPRESSION: Soft tissue swelling is seen. No findings of fracture are seen. However, if there is point tenderness (or other clinical concern fo r a fracture not seen on these plain films) then please consider a short-term follow-up plain film se gabriella or CT for further evaluation. Reviewed by: Ashvin Arce MD on 01/10/2021 10:00 AM [facility] Approved by: Ashvin Arce MD on 01/10/2021 10:00 AM [facility] Station ID: [id number]
== END 2021-01-10 11:51 | disposition home or self-care (01) ==
LOC: ED 09:53
DX: S60.222A Contusion of left hand, initial encounter (principal); W18.30XA Fall on same level, unspecified, initial encounter; Y92.009 Unspecified place in unspecified non-institutional (private) residence as the place of occurrence of the external cause; F17.200 Nicotine dependence, unspecified, uncomplicated
CPT/HCPCS: 29125; 99282; 99283

== ENCOUNTER 2021-02-28 12:10 | Outpatient (CLI) | payer MEDICAID ==
[2021-02-28 21:16] LABS: BACTERIAL VAGINOSIS DNA POSITIVE (NEGATIVE); CANDIDA GLABRATA DNA NEGATIVE (NEGATIVE); CANDIDA GROUP DNA NEGATIVE (NEGATIVE); CANDIDA KRUSEI DNA NEGATIVE (NEGATIVE); TRICHOMONAS VAGINALIS DNA POSITIVE (NEGATIVE)
[2021-02-28 21:44] LABS: CHLAMYDIA TRACHOMATIS DNA NEGATIVE (NEGATIVE); NEISSERIA GONORRHOEAE DNA NEGATIVE (NEGATIVE); TRICHOMONAS VAGINALIS DNA POSITIVE (NEGATIVE)
== END 2021-02-28 12:11 ==
LOC: LAB 12:10
PROVIDERS: ATTEND Emergency Medicine
DX: R10.814 Left lower quadrant abdominal tenderness (principal); Z72.89 Other problems related to lifestyle
CPT/HCPCS: 87491; 87591; 87661; 87801

== ENCOUNTER 2021-02-28 13:30 | Outpatient (CLI) | payer MEDICAID ==
[2021-02-28 16:30] LABS: BILIRUBIN,URINE NEGATIVE (NEGATIVE); GLUCOSE, URINE (UA) NEGATIVE (NEGATIVE); KETONES,URINE (UA) NEGATIVE (NEGATIVE); LEUKOCYTE ESTERASE, URINE SMALL (NEGATIVE); NITRITE,URINE NEGATIVE (NEGATIVE); OCCULT BLOOD,URINE TRACE-INTA (NEGATIVE); PROTEIN,URINE NEGATIVE (NEGATIVE); UROBILINOGEN,URINE 0.2 (NORMAL) E.U./dL (NORMAL)
[2021-02-28 16:45] LABS: BACTERIA,URINE Rare /HPF (None Seen); CLARITY,URINE HAZY (CLEAR); RBC,URINE 0-5 /HPF (0-5); SQUAMOUS EPITHELIAL CELL,UR RARE Squamous (<= Few)
== END 2021-02-28 23:59 | disposition home or self-care (01) ==
LOC: LAB.R 13:30
PROVIDERS: ATTEND Emergency Medicine
DX: R10.814 Left lower quadrant abdominal tenderness (principal); Z72.89 Other problems related to lifestyle
CPT/HCPCS: 81001; 87086

== ENCOUNTER 2021-03-02 08:00 | Outpatient (CLI) | payer MEDICAID ==
[2021-03-03 12:16] LABS: HEPATITIS B SURFACE ANTIGEN NON-REACTIVE (NON-REACTIVE)
[2021-03-03 12:17] LABS: HEPATITIS C ANTIBODY NON-REACTIVE (NON-REACTIVE)
[2021-03-03 15:08] LABS: HIV AG/AB 4TH GEN NON-REACTIVE (NON-REACTIVE)
== END 2021-03-02 23:59 | disposition home or self-care (01) ==
LOC: LAB.S 08:00
PROVIDERS: ATTEND Emergency Medicine
DX: R10.814 Left lower quadrant abdominal tenderness (principal); Z72.89 Other problems related to lifestyle
CPT/HCPCS: 86317; 86592; 86803; 87340; 87389

== ENCOUNTER 2021-05-20 16:14 | Outpatient (CLI) | payer MEDICAID | END 2021-05-20 23:59 | disposition home or self-care (01) | LOC: LAB.S 16:14 | PROVIDERS: ATTEND Emergency Medicine | DX: J06.9 Acute upper respiratory infection, unspecified (principal); Z20.822 Contact with and (suspected) exposure to COVID-19 ==

== ENCOUNTER 2021-08-24 08:00 | Outpatient (CLI) | payer MEDICAID, MEDICARE ==
[2021-08-25 00:26] LABS: CHLAMYDIA TRACHOMATIS DNA NEGATIVE (NEGATIVE); NEISSERIA GONORRHOEAE DNA NEGATIVE (NEGATIVE)
== END 2021-08-24 23:59 | disposition home or self-care (01) ==
LOC: LAB.S 08:00
PROVIDERS: ATTEND Registered Nurse
DX: N89.8 Other specified noninflammatory disorders of vagina (principal)
CPT/HCPCS: 87491; 87591; 87661

== ENCOUNTER 2021-08-25 08:00 | Outpatient (CLI) | payer MEDICARE ==
[2021-08-25 16:46] LABS: BACTERIAL VAGINOSIS DNA POSITIVE (NEGATIVE); CANDIDA GLABRATA DNA NEGATIVE (NEGATIVE); CANDIDA GROUP DNA NEGATIVE (NEGATIVE); CANDIDA KRUSEI DNA NEGATIVE (NEGATIVE); TRICHOMONAS VAGINALIS DNA NEGATIVE (NEGATIVE)
== END 2021-08-25 23:59 | disposition home or self-care (01) ==
LOC: LAB.S 08:00
PROVIDERS: ATTEND Registered Nurse
DX: N89.8 Other specified noninflammatory disorders of vagina (principal)
CPT/HCPCS: 81514

== ENCOUNTER 2022-02-24 02:23 | Emergency (ER) | payer MEDICARE, MEDICAID ==
[2022-02-24 02:33] VITALS: BP 149/93
[2022-02-24] MEDS ORDERED: KETOROLAC 30 MG/ML VIAL IM STA (02:45)
--- NOTE | 2022-02-24 02:47 | ED Physician Documentation ---
History of Present Illness - Stated complaint Stated Complaint: LFT LEG PX - Chief complaint Chief Complaint: Ext Problem - History obtained from History obtained from: Patient - Additonal information Additional information: 56-year-old woman with history of sacroiliitis of the left lower extremity presents with left knee pain for the past 4 to 5 days, gradual onset, intermittent, aching, localized to the knee and radiating upward and downward, worse with range of motion of the knee. Denies numbness, weakness, trauma. 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 HEENT: None Psych: Bipolar disorder Musculoskeletal: None Derm: None - Past Surgical History Past Surgical History: No Ortho: Carpal Tunnel surgery, Other - Present Medications Home Medications: Ambulatory Orders Medication Instructions Recorded Confirmed Venlafaxine [Effexor] 150 mg PO BID 08/28/13 02/24/22 lamoTRIgine [LaMICtal] 150 mg PO BID 08/28/13 02/24/22 Gabapentin 600 mg PO BID 04/18/17 02/24/22 Pantoprazole [Protonix] 40 mg PO DAILY 07/14/20 02/24/22 methocarbamoL [Robaxin] 500 mg PO Q6H #20 tablet 02/24/22 - Allergies Allergies/Adverse Reactions: Allergies Allergy/AdvReac Type Severity Reaction Status Date / Time midazolam [From Versed] Allergy Intermediate Anxiety Verified 02/24/22 02:33 Sulfa (Sulfonamide Allergy Mild Hives Verified 02/24/22 02:33 Antibiotics) clarithromycin [From Biaxin] Allergy Unknown Verified 02/24/22 02:33 Iodine and Iodide Containing AdvReac Intermediate Nausea Verified 02/24/22 02:33 Produc fluconazole [From Diflucan] AdvReac Unknown Verified 02/24/22 02:33 - Social History Does the pt smoke?: Yes Smoking Status: Current every day smoker Does the pt drink ETOH?: No Does the pt have substance abuse?: No - Immunizations Immunizations are current?: Yes Immunizations: TDAP current <10years, Other immun not current - POLST Patient has POLST: No PD ED PE NORMAL - Vitals Vital signs reviewed: Yes - General General: Alert and oriented X 3, No acute distress - Derm Derm: Normal color, Warm and dry - Extremities Extremities: No deformity, Other (Left knee tender with range of motion. No swelling. 2+ bilateral DP pulses. Normal sensation and capillary refill.) Results - Vitals Vitals: Vital Signs - 24 hr 02/24/22 02:31 Temperature 36.2 C L Heart Rate 87 Respiratory 16 Rate Blood Pressure 149/93 H O2 Saturation 96 Oxygen O2 Source Room air PD MEDICAL DECISION MAKING - ED course ED course: 56-year-old woman presents with left knee pain, symptomatic care provided. Prescription sent to pharmacy. Return precautions given. Patient will follow up on March 09 with her primary care provider. Departure - Departure Disposition: Home, Self Care Clinical Impression: Knee pain Condition: Good Instructions: ED RICE Prescriptions: methocarbamoL [Robaxin] 500 mg PO Q6H #20 tablet Comments: You are seen in the emergency department for evaluation of knee pain. You likely have a combination of muscle spasm And osteoarthritis that are exacerbating her symptoms. Please follow-up with your primary doctor for referral to physical therapy if you continue to have pain. Return to the emerge ncy department if you have any new or worsening symptoms or other concerns. A prescription was sent to [facility] in [place] for a muscle relaxer.
== END 2022-02-24 02:54 | disposition home or self-care (01) ==
LOC: ED 02:23
DX: M25.562 Pain in left knee (principal); F17.200 Nicotine dependence, unspecified, uncomplicated
CPT/HCPCS: 96372; 99283